=== PATIENT | female | born 1980 | race Caucasian/White ===

== ENCOUNTER → 2016-05-10 | Day surgery (SDC) | payer OTHER ==
[~2016-05-10] MED LIST: ACETAMINOPHEN P1 TA5 PO; LOESTRIN1 TA1 PO
--- NOTE | ~2016-05-10 | OR ---
Unit #: [id number] #: [id number] Patient: CASI RIVERA [id number] [address] [address] [id number] O MR#: [id number] NAME: CASI RIVERA ROOM: Date of Procedure: 05/10/2016 Admission Date: 05/10/2016 Surgeon: Dennis Infante M.D. : 1980 Attending Physician: Dennis Infante M.D. Referring Physician: Dennis Infante M.D. Primary Care Physician: Fernanda Dickson M.D. OPERATIVE REPORT PREOPERATIVE DIAGNOSIS Enlarging lipoma, epigastric area. POSTOPERATIVE DIAGNOSIS Enlarging lipoma, epigastric area. PROCEDURE PERFORMED Excision of enlarging lipoma (12 x 6 cm), epigastric area with layered closure. ANESTHESIA General LMA anesthesia with 0.5% Marcaine plain local anesthesia. FINDINGS The lesion was consistent with a lipoma. SPECIMENS Sent to Pathology. COMPLICATIONS None apparent. CONDITION The patient tolerated the procedure well. INDICATIONS FOR PROCEDURE The patient is a 35-year-old [place] female, who presents at this time with a subcutaneous mass. It has increased in size and became increasingly bothersome and uncomfortable. A CT scan showed a mass that was not involving the lower chest wall or rectus sheath, but was consistent with a lipoma. She presents at this time for excision for pathologic diagnosis and treatment. DESCRIPTION OF PROCEDURE After informed consent as well as receiving preoperative antibiotics, the patient was brought to the operating room and after adequate general LMA anesthesia was obtained, had her epigastric area prepped and draped in a sterile fashion. A transverse incision was made over the mass and it was taken down through the skin with a knife through the subcutaneous tissues down to the level of the lesion with the electrocautery. The lesion was dissected free from the surrounding structures with blunt dissection as well as the electrocautery of the feeding vessels with good hemostasis. Unit #: [id number] #: [id number] Patient: CASI RIVERA It was removed and sent to Pathology. The wound was copiously irrigated. Good hemostasis was confirmed in all areas of dissection. All areas were infiltrated with 0.5% Marcaine plain local anesthesia. The subcutaneous tissues were reapproximated with interrupted 3-0 Vicryl sutures taking a bite of the base of the wound in order to obliterate any space. The skin was closed with a 4-0 Vicryl subcuticular stitch. Benzoin and Steri-Strips were applied over the wound in an occlusive manner followed by a dry dressing and a Tegaderm dressing. Needle counts, sponge counts, and instrument counts were all correct as reported by the scrub nurse x2. The patient went from the operating room to the recovery room in stable condition. Dictated by... Mikala Alfred/jennifer TD: 05/11/2016 04:42 JOB #: [id number] [facility] OPERATIVE REPORT X Dennis Infante MD X PROCEDURE OPERATIVE NOTE
== END | disposition home or self-care (01) ==
LOC: CSUR 10:50
DX: D17.1 Benign lipomatous neoplasm of skin and subcutaneous tissue of trunk (principal); I10 Essential (primary) hypertension; F17.210 Nicotine dependence, cigarettes, uncomplicated; Z88.1 Allergy status to other antibiotic agents; Z83.3 Family history of diabetes mellitus; Z83.49 Family history of other endocrine, nutritional and metabolic diseases
CPT/HCPCS: 84703; 88304; J0690; J2175; J2250; J2405; J3010